=== PATIENT | male | born 1990 | race Caucasian/White ===

== ENCOUNTER 2017-04-09 16:11 | Emergency (ER) | payer SELFPAY ==
[~2017-04-09] VITALS: Ht 182.9 cm; Wt 93.6 kg
[2017-04-09 18:15] VITALS: BP 126/68
== END 2017-04-09 18:15 | disposition home or self-care (01) ==
LOC: ED 16:11
DX: R11.10 Vomiting, unspecified (principal); R19.7 Diarrhea, unspecified
CPT/HCPCS: 82962; Q0162

== ENCOUNTER 2019-03-31 09:56 | Emergency (ER) | payer BC ==
[~2019-03-31] VITALS: Ht 180.3 cm; Wt 93.4 kg
[2019-03-31 10:00] VITALS: Ht 180.3 cm; Wt 93.4 kg
[2019-03-31 11:11] LABS: CALCIUM 9.3 mg/dL (8.5-10.1); CARBON DIOXIDE 30.7 mmol/L (21-32); CHLORIDE SERUM 104 mmol/L (98-107); CREATININE SERUM 0.7 mg/dL (0.7-1.3); GFR1 > 60 mL/min; GLUCOSE SERUM 100 mg/dL (74-106); POTASSIUM SERUM 4.4 mmol/L (3.5-5.1); SODIUM SERUM 141 mmol/L (136-145)
[2019-03-31 11:23] LABS: BASOPHIL % 0.6 % (0-2); PLATELET COUNT 244 x10^3mcL (130-400); RED CELL DISTRIBUTION WIDTH 13.3 % (11.5-14.5)
[2019-03-31 12:40] VITALS: BP 142/84
== END 2019-03-31 12:40 | disposition home or self-care (01) ==
LOC: ED 09:56
PROVIDERS: Emergency Medicine
DX: K52.9 Noninfective gastroenteritis and colitis, unspecified (principal)
CPT/HCPCS: 36415; Q0162